=== PATIENT | male | born 1970 | race Caucasian/White ===

== ENCOUNTER 2020-01-07 14:11 | Outpatient (CLI) | payer OTHER ==
[~2020-01-07] VITALS: Ht 185.4 cm; Wt 95.3 kg
[~2020-01-07 14:11] MED LIST: MULTIVITAMINS1 EA14 PO; ODOR FREE GARL100 MG PO; VIT D PO; WELLBUTRIN XL150 MG ORAL; [UNRECOGNIZED DRUG - OTHER] PO
[2020-01-07] MEDS ORDERED: SINGULAIR10 MG ORAL (15:18)
[2020-01-07 15:19] VITALS: BP 133/90
--- NOTE | 2020-01-08 08:25 | Consultation ---
DATE OF CONSULTATION: 01/07/2020 CHIEF COMPLAINT: Referral for screening colonoscopy. PAST MEDICAL HISTORY: HIV. PAST SURGICAL HISTORY: History of hernia repair, history of colonic polyp in 2015. MEDICATIONS: Please see medication reconciliation list. FAMILY HISTORY: Significant for father with colon cancer. Mom also had colon cancer. SOCIAL HISTORY: The patient drinks alcohol. Denies any tobacco or IV drug abuse. ALLERGIES: No known drug allergies. REVIEW OF SYSTEMS: A 12-point review of systems was performed and was negative. PHYSICAL EXAMINATION: VITAL SIGNS: Temperature 97.3, blood pressure 127/90, pulse 67, respirations 20. HEENT: Normocephalic and atraumatic. Sclerae anicteric. NECK: Supple. No evidence of obvious lymphadenopathy. CARDIOVASCULAR: Regular rate and rhythm. Plus S1, S2. LUNGS: Clear to auscultation bilaterally. ABDOMEN: Positive bowel sounds. Soft and nontender. No rebound. No guarding. No peritoneal sign. EXTREMITIES: No cyanosis. No clubbing. No edema. ASSESSMENT AND PLAN: This is a 49-year-old male with history of colonic polyps 5 years ago, family history of colon malignancy in first-degree relatives, needs repeat colonoscopy. The patient was given instruction for colonoscopy. Risks and benefits of procedure was explained to him. We will schedule him as soon as authorization is obtained. Juanpablo Pacheco M.D. DR: Sandra JOB#: [id number] CC:
== END 2020-01-07 16:11 | disposition home or self-care (01) ==
LOC: PAN 14:11
DX: Z00.00 Encounter for general adult medical examination without abnormal findings (principal); B20 Human immunodeficiency virus [HIV] disease; Z80.0 Family history of malignant neoplasm of digestive organs; Z86.010 Personal history of colon polyps
CPT/HCPCS: G0463